=== PATIENT | female | born 1975 | race Two or more races ===

== ENCOUNTER 2020-05-17 11:41 | Emergency (ER) | payer SELFPAY ==
[~2020-05-17] VITALS: Ht 162.6 cm; Wt 68.0 kg
--- NOTE | 2020-05-17 12:00 | NUR ---
ED Nurse Note: Pt walked in from home c/o lower back pain, loss of appetite x few weeks. Pt also reports black stool last night. Denies n/v/d/fever. Pt is AOx4, calm and cooperative to care. Pt's VSS, on RA, afebrile on triage.
[2020-05-17 12:15] VITALS: BP 139/103
--- NOTE | 2020-05-17 12:26 | Emergency Room Report ---
History of Present Illness General Chief Complaint: General Complaint Source: Patient Present Illness HPI Patient is a 45-year-old female past medical history of anxiety who presents to the ER complaining of generalized weakness. Patient states that she has felt fatigued over the past 3 weeks and has had decreased appetite. Patient states that she has had less stooling but attributes it to not eating as much. She states that last night she noted dark stools. She denies any fever or chills. She denies any abdominal pain. Patient complains of right-sided lower back pain that is been present for the past few weeks as well. She denies any chest pain or shortness of breath. She denies any cough. She states she was seen in urgent care a week ago and was treated for anxiety. Patient denies any abdominal pain and states that she has a history of an appendectomy in the past. 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: No Patient History Last Menstrual Period: last week Reviewed Nursing Documentation: PMH: Agreed; PSxH: Agreed Nursing Documentation-PMH Past Medical History: No History, Except For Review of Systems All Other Systems: negative except mentioned in HPI Physical Exam Vital Signs Date Time Temp Pulse Resp B/P (MAP) Pulse Ox O2 Delivery O2 Flow Rate FiO2 05/17/20 11:58 98.2 98 18 139/103 (115) 95 Room Air Sp02 EP Interpretation: reviewed, normal General Appearance: no apparent distress, alert, GCS 15, non-toxic Head: normocephalic, atraumatic Eyes: bilateral eye normal inspection, bilateral eye PERRL ENT: hearing grossly normal, normal pharynx, no angioedema, normal voice Neck: full range of motion, supple/symm/no masses Respiratory: chest non-tender, lungs clear, normal breath sounds, speaking full sentences Cardiovascular #1: regular rate, rhythm, no edema Gastrointestinal: normal bowel sounds, non tender, soft, non-distended, no guarding, no rebound, overweight Rectal: deferred Genitourinary: CVA tenderness (R) Musculoskeletal: normal range of motion, other Neurologic: motor strength/tone normal, pole shaver helper III-XII nml as tested, oriented x3, sensory intact Psychiatric: depressed affect Skin: no rash Lymphatic: no adenopathy Medical Decision Making Diagnostic Impression: Primary Impression: Colitis Additional Impressions: Ovarian cyst Fibroid ER Course Patient's vital signs are stable. Labs demonstrate no significant acute abnormalities. CT demonstrates evidence for colitis. Patient treated with Flagyl and Cipro. Patient CT also demonstrates small ovarian cyst and uterine fibroid. After discussing risks and benefits of further diagnostics, treatment plans, as well as indications for and risks of admission, the patient is agreeable to being discharged home. I have explained that their evaluation and treatment in the emergency department today is an important step towards them achieving better health but that their evaluation today is not intended to replace further evaluation and treatment by a physician in their local clinic. I have explained that while the current findings suggest no immediate life threatening emergency they will require further evaluation and treatment by a physician of their choice in their area. They understand that it will be necessary for them to review the final reports of their ED visit with their clinic physician. We have reviewed indications for return to the Emergency Depa rtment. I have explained that additional time may need to pass and/or additional testing as an outpatient may be necessary before a definitive diagnosis can be made. They tell me they are willing to follow up as instructed within the timeframe I recommend. They appear to understand what we discussed. Additionally they understand that if they are unable to be seen by an outpatient physician they are welcome, and in fact should, return to the Emergency Department for a repeat evaluation. The patient is stable at time of discharge. Laboratory Tests Test 05/17/20 12:27 White Blood Count 6.5 K/UL (4.8-10.8) Red Blood Count 5.66 M/UL (4.20-5.40) H Hemoglobin 16.0 G/DL (12.0-16.0) Hematocrit 47.3 % (37.0-47.0) H Mean Corpuscular Volume 84 FL (80-99) Mean Corpuscular Hemoglobin 28.4 PG (27.0-31.0) Mean Corpuscular Hemoglobin Concent 33.9 G/DL (32.0-36.0) Red Cell Distribution Width 12.4 % (11.6-14.8) Platelet Count 208 K/UL (150-450) Mean Platelet Volume 8.7 FL (6.5-10.1) Neutrophils (%) (Auto) 75.3 % (45.0-75.0) H Lymphocytes (%) (Auto) 17.4 % (20.0-45.0) L Monocytes (%) (Auto) 5.3 % (1.0-10.0) Eosinophils (%) (Auto) 1.0 % (0.0-3.0) Basophils (%) (Auto) 1.0 % (0.0-2.0) Urine Color Pale yellow Urine Appearance Clear Urine pH 7 (4.5-8.0) Urine Specific [place] 1.005 (1.005-1.035) Urine Protein Negative (NEGATIVE) Urine Glucose (UA) Negative (NEGATIVE) Urine Ketones Negative (NEGATIVE) Urine Blood 2+ (NEGATIVE) H Urine Nitrite Negative (NEGATIVE) Urine Bilirubin Negative (NEGATIVE) Urine Urobilinogen Normal MG/DL (0.0-1.0) Urine Leukocyte Esterase Negative (NEGATIVE) Urine RBC 0-2 /HPF (0 - 2) Urine WBC 0 /HPF (0 - 2) Urine Squamous Epithelial Cells Occasional /LPF Urine Bacteria None /HPF (NONE) Urine HCG, Qualitative Negative (NEGATIVE) Sodium Level 139 MMOL/L (136-145) Potassium Level 3.9 MMOL/L (3.5-5.1) Chloride Level 103 MMOL/L (98-107) Carbon Dioxide Level 26 MMOL/L (21-32) Anion Gap 10 mmol/L (5-15) Blood Urea Nitrogen 9 mg/dL (7-18) Creatinine 0.8 MG/DL (0.55-1.30) Estimated Glomerular Filtration Rate > 60 mL/min (>60) Glucose Level 104 MG/DL (74-106) Calcium Level 9.3 MG/DL (8.5-10.1) Magnesium Level 2.1 MG/DL (1.8-2.4) Total Bilirubin 0.5 MG/DL (0.2-1.0) Aspartate Amino Transferase (AST) 15 U/L (15-37) Alanine Aminotransferase (ALT) 20 U/L (12-78) Alkaline Phosphatase 58 U/L (46-116) Total Protein 7.5 G/DL (6.4-8.2) Albumin 4.3 G/DL (3.4-5.0) Globulin 3.2 g/dL Albumin/Globulin Ratio 1.3 (1.0-2.7) Lipase 64 U/L (73-393) L Thyroid Stimulating Hormone (TSH) 0.746 uiU/mL (0.358-3.740) Free Thyroxine 1.27 NG/DL (0.76-1.46) Urine Opiates Screen Negative (NEGATIVE) Urine Barbiturates Screen Negative (NEGATIVE) Phencyclidine (PCP) Screen Negative (NEGATIVE) Urine Amphetamines Screen Negative (NEGATIVE) Urine Benzodiazepines Screen Negative (NEGATIVE) Urine Cocaine Screen Negative (NEGATIVE) Urine Marijuana (THC) Screen Negative (NEGATIVE) Last Vital Signs Date Time Temp Pulse Resp B/P (MAP) Pulse Ox O2 Delivery O2 Flow Rate FiO2 05/17/20 11:58 98.2 98 18 139/103 (115) 95 Room Air Disposition: HOME, SELF-CARE Condition: Stable Scripts Metronidazole* (FLAGYL*) 500 Mg Tablet 500 MG ORAL THREE TIMES A DAY, #21 TAB Prov: Criselda Serna M.D. 05/17/20 Ciprofloxacin Hcl* (CIPROFLOXACIN HCL*) 500 Mg Tablet 500 MG ORAL Q12H, #14 TAB 0 Refills Prov: Criselda Serna M.D. 05/17/20 Additional Instructions: The patient was provided with discharge instructions, notified to follow-up with a primary care doctor and or specialist in the next 24-48 hours, and to return to the ED if they have worsening of their symptoms. Please note that this report is being documented using Simple [employer] technology. This can lead to erroneous entry secondary to incorrect interpretation by the d ictating instrument. Criselda Serna M.D. May 17, 2020 12:26
[2020-05-17 12:47] LABS: HEMATOCRIT 47.3 % (37.0-47.0); LYMPHOCYTES % (AUTO) 17.4 % (20.0-45.0); MEAN CORPUSCULAR VOLUME 84 FL (80-99); MONOCYTES % (AUTO) 5.3 % (1.0-10.0); NEUTROPHILS % (AUTO) 75.3 % (45.0-75.0); PLATELET COUNT 208 K/UL (150-450); RED BLOOD COUNT 5.66 M/UL (4.20-5.40); RED CELL DISTRIBUTION WIDTH 12.4 % (11.6-14.8); WHITE BLOOD COUNT 6.5 K/UL (4.8-10.8)
[2020-05-17 12:52] LABS: APPEARANCE,URINE CLEAR; BILIRUBIN, URINE NEGATIVE (NEGATIVE); COLOR,URINE PALE YELLOW; GLUCOSE, URINE (UA) NEGATIVE (NEGATIVE); KETONES,URINE NEGATIVE (NEGATIVE); LEUKOCYTE ESTERASE ,URINE NEGATIVE (NEGATIVE); NITRITE,URINE NEGATIVE (NEGATIVE); PH,URINE 7 (4.5-8.0); PROTEIN,URINE NEGATIVE (NEGATIVE); UROBILINOGEN,URINE NORMAL MG/DL (0.0-1.0)
[2020-05-17 13:01] LABS: ANION GAP 10 mmol/L (5-15); BLOOD UREA NITROGEN 9 mg/dL (7-18); CALCIUM 9.3 MG/DL (8.5-10.1); CARBON DIOXIDE 26 MMOL/L (21-32); CHLORIDE 103 MMOL/L (98-107); CREATININE 0.8 MG/DL (0.55-1.30); POTASSIUM 3.9 MMOL/L (3.5-5.1); SODIUM 139 MMOL/L (136-145)
[2020-05-17 13:17] LABS: ALANINE AMINOTRANSFERASE 20 U/L (12-78); ALBUMIN 4.3 G/DL (3.4-5.0); ALBUMIN/GLOBULIN RATIO 1.3 (1.0-2.7); ALKALINE PHOSPHATASE 58 U/L (46-116); ASPARTATE AMINO TRANSFERASE 15 U/L (15-37); BILIRUBIN,TOTAL 0.5 MG/DL (0.2-1.0)
--- NOTE | 2020-05-17 13:48 | Diagnostic Imaging Report ---
EXAM: CT Abdomen and Pelvis Without Intravenous Contrast CLINICAL HISTORY: ABD PAIN TECHNIQUE: Axial computed tomography images of the abdomen and pelvis without intravenous contrast. Sagittal and coronal reformatted images were created and reviewed. CTDI is 5.7 mGy and DLP is 288.7 mGy-cm. One or more of the following dose reduction techniques were used: automated exposure control, adjustment of the mA and/or kV according to patient size, use of iterative reconstruction technique. COMPARISON: No relevant prior studies available. FINDINGS: Lung bases: Unremarkable. No consolidation. No effusions. ABDOMEN: Liver: Unremarkable. Gallbladder and bile ducts: Unremarkable. No calcified stones. No ductal dilation. Pancreas: Unremarkable. No ductal dilation. Spleen: Unremarkable. No splenomegaly. Adrenals: Unremarkable. No mass. Kidneys and ureters: Unremarkable. No obstructing stones. No hydronephrosis. Stomach and bowel: Findings suggesting mild colitis, with wall thickening from distal transverse colon through distal sigmoid colon. Remainder of the colon appears unremarkable. No abnormally distended loops of small bowel. GE junction and stomach appear unremarkable. PELVIS: Appendix: No findings to suggest acute appendicitis. Bladder: Unremarkable. No stones. Reproductive: Incidental note of a 1.6 cm hypodense cyst in the right ovary, likely a physiologic cyst or follicle. Mildly bulky appearance of the uterus, which may suggest fibroids. ABDOMEN and PELVIS: Intraperitoneal space: Unremarkable. No free air. No significant fluid collection. Bones/joints: No acute fracture. No dislocation. Soft tissues: Unremarkable. Vasculature: Unremarkable. No abdominal aortic aneurysm. Lymph nodes: Unremarkable. No enlarged lymph nodes. IMPRESSION: 1. Findings suggesting mild colitis, with mild wall thickening from distal transverse colon through distal sigmoid colon. No adjacent inflammatory stranding, free air, or fluid collection. 2. Incidental note of a 1.6 cm hypodense cyst in the right ovary, likely a physiologic cyst or follicle. 3. Mildly bulky appearance of the uterus, which may suggest fibroids.
[2020-05-17] MEDS ORDERED: METRONIDAZOLE500 MG ORAL (13:52)
[2020-05-17] MEDS ORDERED: CIPROFLOXACIN500 M2 ORAL (13:52)
[2020-05-17] MEDS ORDERED: Ciprofloxacin 500mg tab ORAL ONE (14:00)
[2020-05-17] MEDS ORDERED: metroNIDAZOLE 500mg tab ORAL ONE (14:00)
[2020-05-17 14:11] VITALS: BP 140/95
--- NOTE | 2020-05-17 14:11 | NUR ---
ER DISCHARGE NOTE: Patient is cleared to be discharged per ERMD, pt is aox4, on room air, with stable vital signs. pt was given dc and prescription instructions, pt was able to verbalize understanding, pt id band removed. pt is able to ambulate with steady gait. pt took all belongings.
== END 2020-05-17 14:11 | disposition home or self-care (01) ==
LOC: EMR 12:20
DX: K52.9 Noninfective gastroenteritis and colitis, unspecified (principal); N83.201 Unspecified ovarian cyst, right side; D25.9 Leiomyoma of uterus, unspecified; Z88.0 Allergy status to penicillin
CPT/HCPCS: 36415; 74176; 80053; 80307; 81003; 81025; 83690; 83735; 84439; 84443; 85025; 96360; 99284; J7030

== ENCOUNTER 2020-05-22 05:38 | Emergency (ER) | payer MEDICAID ==
[~2020-05-22] VITALS: Ht 162.6 cm; Wt 68.0 kg
[~2020-05-22 05:38] MED LIST: CIPROFLOXACIN500 M2 ORAL; METRONIDAZOLE500 MG ORAL
--- NOTE | 2020-05-22 05:45 | NUR ---
ED Nurse Note: pt walked into ED from home c/o RLQ abd pain radiates to the back for 2 weeks. Pt states she was seen last week here at [facility] ED and was diagnosed with colitis and was DC with Ciprofloxacin and has 2 days left of ABX. Pt reports she has been having chills, but denies fever nausea vomiting. Pt is AAOx4 breathing even and unlabored. Vital stable as documented.
--- NOTE | 2020-05-22 06:11 | Emergency Room Report ---
History of Present Illness General Chief Complaint: Abdominal Pain Source: Patient Present Illness HPI Disclaimer: Please note that this report is being documented using [employer] technology. This can lead to erroneous entry secondary to incorrect interpretation by the dictating instrument. HPI: 45-year-old female with history of anxiety disorder presents for evaluation of abdominal pain. Patient reports right-sided cramping abdominal pain that wraps around the right flank. This is been ongoing for several weeks. She was seen in the emergency department 5 days ago diagnosed with colitis by CT scan started on ciprofloxacin and Flagyl. States her symptoms have not improved. She reports persistent abdominal pain however loose stools have improved. Pain is exacerbated by sitting upright and appears to be positional. Denies fever, chills, nausea, vomiting, dysuria, hematuria, vaginal bleeding, vaginal discharge. LMP was [address] also showed a fibroid uterus and small ovarian cyst. No history of kidney stones and no stones were identified on CT. Patient does not have a PMD to follow-up with. 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 EOMI. Cardiovascular: RRR. S1 and S2 normal. No murmur appreciated Resp: Normal work of breathing. No cough, wheezing or crackles appreciated Abdomen: Abdomen is soft, nondistended. Obese abdomen. Tenderness palpation in the right lower quadrant without palpable mass. No rebound. No guarding or peritoneal signs. Otherwise no suprapubic tenderness or tenderness in the other quadrants of the abdomen. No flank pain. Skin: Intact. No abrasions, laceration or rash over the exposed skin MSK: Normal tone and bulk. Moving all extremities. No obvious deformity. Neuro: Awake and alert. Mentating appropriately. Medical Decision Making Diagnostic Impression: Primary Impression: Abdominal pain Additional Impression: Fibroid ER Course This is a 45-year-old female presenting for evaluation of abdominal pain. Recently diagnosed with ovarian cyst and fibroids as well as mild for which she is taking antibiotics. Differential includes was not limited to persistent colitis, inflammatory colitis, inflammatory bowel disease, irritable bowel syndrome, symptomatic ovarian cyst, symptomatic fibroids, urinary tract infection, pyelonephritis, nephrolithiasis among others. Given the patient's recent CT scan as well as the duration of the abdominal pain which preceded the changes in stool over the past few weeks I believe the patient's current abdominal discomfort is likely related to her fibroids or cyst. There were no identifiable stones, masses, diverticulosis or other noted findings on prior report. She does not follow with [facility]. Urinalysis shows positive leukocyte esterase and bacteria though many squamous cells as well. She is already taking ciprofloxacin and denies symptoms of urinary tract infection. Will await culture results and not change antibiotics at this time. CBC and chemistry within normal limits. Patient be referred to [facility] outpatient basis for further work-up ovarian cyst and fibroid. Also referred again to free clinics in the area. May benefit from colonoscopy. Start on probiotics and short course of pain medication provided. Discussed reasons to return to ED. She understands and agrees with this treatment plan. Laboratory Tests Test 05/22/20 05:50 05/22/20 05:55 Urine Color Yellow Urine Appearance Clear Urine pH 6 (4.5-8.0) Urine Specific [place] 1.010 (1.005-1.035) Urine Protein Negative (NEGATIVE) Urine Glucose (UA) Negative (NEGATIVE) Urine Ketones 2+ (NEGATIVE) H Urine Blood 1+ (NEGATIVE) H Urine Nitrite Negative (NEGATIVE) Urine Bilirubin Negative (NEGATIVE) Urine Urobilinogen Normal MG/DL (0.0-1.0) Urine Leukocyte Esterase 2+ (NEGATIVE) H Urine RBC 2-4 /HPF (0 - 2) H Urine WBC 5-10 /HPF (0 - 2) H Urine Squamous Epithelial Cells Many /LPF (NONE/OCC) H Urine Bacteria Moderate /HPF (NONE) H White Blood Count 6.9 K/UL (4.8-10.8) Red Blood Count 6.20 M/UL (4.20-5.40) H Hemoglobin 17.3 G/DL (12.0-16.0) H Hematocrit 51.7 % (37.0-47.0) H Mean Corpuscular Volume 83 FL (80-99) Mean Corpuscular Hemoglobin 27.9 PG (27.0-31.0) Mean Corpuscular Hemoglobin Concent 33.5 G/DL (32.0-36.0) Red Cell Distribution Width 12.6 % (11.6-14.8) Platelet Count 227 K/UL (150-450) Mean Platelet Volume 9.3 FL (6.5-10.1) Neutrophils (%) (Auto) 67.7 % (45.0-75.0) Lymphocytes (%) (Auto) 21.7 % (20.0-45.0) Monocytes (%) (Auto) 7.9 % (1.0-10.0) Eosinophils (%) (Auto) 1.5 % (0.0-3.0) Basophils (%) (Auto) 1.2 % (0.0-2.0) Sodium Level 139 MMOL/L (136-145) Potassium Level 3.3 MMOL/L (3.5-5.1) L Chloride Level 101 MMOL/L (98-107) Carbon Dioxide Level 27 MMOL/L (21-32) Anion Gap 12 mmol/L (5-15) Blood Urea Nitrogen 4 mg/dL (7-18) L Creatinine 0.9 MG/DL (0.55-1.30) Estimated Glomerular Filtration Rate > 60 mL/min (>60) Glucose Level 123 MG/DL (74-106) H Calcium Level 9.2 MG/DL (8.5-10.1) Total Bilirubin 0.6 MG/DL (0.2-1.0) Aspartate Amino Transferase (AST) 20 U/L (15-37) Alanine Aminotransferase (ALT) 31 U/L (12-78) Alkaline Phosphatase 56 U/L (46-116) Total Protein 7.7 G/DL (6.4-8.2) Albumin 4.6 G/DL (3.4-5.0) Globulin 3.1 g/dL Albumin/Globulin Ratio 1.5 (1.0-2.7) Lipase 101 U/L (73-393) Human Chorionic Gonadotropin, Quant < 1 mIU/mL (1-6) L Last Vital Signs Date Time Temp Pulse Resp B/P (MAP) Pulse Ox O2 Delivery O2 Flow Rate FiO2 05/22/20 05:41 98.4 103 16 121/70 (87) 97 Room Air Disposition: HOME, SELF-CARE Condition: Stable Scripts Hydrocodone Bit/Acetaminophen 5-325* (NORCO 5-325 TABLET*) 1 Each Tablet 1 TAB ORAL Q6H PRN for FOR PAIN, #10 TAB 0 Refills Prov: Jose Mcguire MD 05/22/20 Bacillus Coagulans/Vitamin D3 (Probiotic 2 Billion Gummies) 1 Each Tab.chew 1 EACH PO DAILY for 10 Days, #10 TAB Prov: Jose Mcguire MD 05/22/20 Referrals: NOT CHOSEN [facility]/,REFERRING (PCP) Jose Mcguire MD May 22, 2020 06:11
[2020-05-22 06:15] LABS: BASOPHILS % (AUTO) 1.2 % (0.0-2.0); EOSINOPHILS % (AUTO) 1.5 % (0.0-3.0); HEMATOCRIT 51.7 % (37.0-47.0); HEMOGLOBIN 17.3 G/DL (12.0-16.0); LYMPHOCYTES % (AUTO) 21.7 % (20.0-45.0); MEAN CORPUSCULAR VOLUME 83 FL (80-99); MONOCYTES % (AUTO) 7.9 % (1.0-10.0); NEUTROPHILS % (AUTO) 67.7 % (45.0-75.0); PLATELET COUNT 227 K/UL (150-450); RED CELL DISTRIBUTION WIDTH 12.6 % (11.6-14.8); WHITE BLOOD COUNT 6.9 K/UL (4.8-10.8)
[2020-05-22] MEDS ORDERED: Dicyclomine HCl 10mg/5ml oral soln ORAL ONE (06:15)
[2020-05-22 06:22] LABS: APPEARANCE,URINE CLEAR; BILIRUBIN, URINE NEGATIVE (NEGATIVE); GLUCOSE, URINE (UA) NEGATIVE (NEGATIVE); KETONES,URINE 2+ (NEGATIVE); LEUKOCYTE ESTERASE ,URINE 2+ (NEGATIVE); NITRITE,URINE NEGATIVE (NEGATIVE); PH,URINE 6 (4.5-8.0); PROTEIN,URINE NEGATIVE (NEGATIVE); UROBILINOGEN,URINE NORMAL MG/DL (0.0-1.0)
[2020-05-22 06:24] LABS: COLOR,URINE YELLOW
[2020-05-22] MEDS ORDERED: PROBIOTIC 2 BI1 EACH PO (06:39)
[2020-05-22 06:55] LABS: ANION GAP 12 mmol/L (5-15); BLOOD UREA NITROGEN 4 mg/dL (7-18); CALCIUM 9.2 MG/DL (8.5-10.1); CARBON DIOXIDE 27 MMOL/L (21-32); CHLORIDE 101 MMOL/L (98-107); CREATININE 0.9 MG/DL (0.55-1.30); POTASSIUM 3.3 MMOL/L (3.5-5.1); SODIUM 139 MMOL/L (136-145)
[2020-05-22 07:00] LABS: ALANINE AMINOTRANSFERASE 31 U/L (12-78); ALBUMIN 4.6 G/DL (3.4-5.0); ALBUMIN/GLOBULIN RATIO 1.5 (1.0-2.7); ALKALINE PHOSPHATASE 56 U/L (46-116); ASPARTATE AMINO TRANSFERASE 20 U/L (15-37); BILIRUBIN,TOTAL 0.6 MG/DL (0.2-1.0)
[2020-05-22 07:05] VITALS: BP 128/72
--- NOTE | 2020-05-22 07:05 | NUR ---
ED Nurse Note: Report received from NS MORGAN Loving. Pt had R abdominal pain that radiates to back. Pt current pain is 5/10. No current nausea or vomiting. Pt is lying in bed with no acute distress.
--- NOTE | 2020-05-22 07:09 | NUR ---
HAND-OFF: Report given to MORGAN Mccarthy.
[2020-05-22] MEDS ORDERED: NORCO 5-325 TA1 EAC1 ORAL (07:15)
--- NOTE | 2020-05-22 07:31 | NUR ---
ER DISCHARGE NOTE: Patient is cleared to be discharged per ERMD, pt is aox4, on room air, with stable vital signs. pt was given dc and prescription instructions, pt was able to verbalize understanding, pt id band and iv site removed without complications. pt is able to ambulate with steady gait. pt took all belongings. Pt given referrals. Pt educated on abdominal pain.
[2020-05-22 07:37] VITALS: BP 126/73
== END 2020-05-22 07:38 | disposition home or self-care (01) ==
LOC: EMR 05:58
DX: D25.9 Leiomyoma of uterus, unspecified (principal); R10.31 Right lower quadrant pain; Z88.0 Allergy status to penicillin
CPT/HCPCS: 36415; 80053; 81003; 83690; 84702; 85025; 87086; 96360; J7030; Z7502; 99284